=== PATIENT | male | born 2005 | race Caucasian/White ===

== ENCOUNTER 2024-03-15 06:15 | Day surgery (SDC) | payer OTHER ==
[2024-03-09 13:32] VITALS: BMI 23.6
[2024-03-15] MEDS ORDERED: BUPIVACAINE HCL/EPINEPHRINE/PF 30 ML VIAL IJ ONE (07:22)
[2024-03-15] MEDS ORDERED: MIDAZOLAM HCL 2 MG/2 ML SINGLE DOSE VIAL ONE ×2 (07:22→07:42)
[2024-03-15] MEDS ORDERED: FENTANYL CITRATE/PF 50 MCG/ML VIAL ONE ×2 (07:22→08:34)
[2024-03-15] MEDS ORDERED: BUPIVACAINE HCL/PF 0.25% (2.5MG/ML) 10 ML VIAL ONE (07:22)
[2024-03-15] MEDS ORDERED: PROPOFOL 60 ML ONE (07:39)
[2024-03-15] MEDS ORDERED: CEFAZOLIN SODIUM 2 GM in DEXTROSE 5%-WATER 100 ML IVPB ONE (07:44)
[2024-03-15] MEDS ORDERED: SUCCINYLCHOLINE CHLORIDE 200 MG/10 ML SYRINGE ONE (07:47)
[2024-03-15] MEDS: BUPIVACAINE 0.25% /EPI 1:200,000 10 ML VIAL NR ONE (08:02)
[2024-03-15] MEDS ORDERED: PROPOFOL 40 ML ONE (08:05)
[2024-03-15] MEDS ORDERED: ONDANSETRON 4 MG/2 ML VIAL IVPUSH PRN (08:36)
[2024-03-15] MEDS ORDERED: oxyCODONE HCL 5 MG TABLET PO PRN ×2 (08:36)
[2024-03-15] MEDS: ACETAMINOPHEN 1000 MG/100 ML BAG IVPB ONE (08:40)
[2024-03-15] MEDS ORDERED: LACTATED RINGERS SOLUTION 1,000 ML IV SCH (08:45)
[2024-03-15] MEDS ORDERED: oxyCODONE HCL 5 MG TABLET ONE (09:33)
[2024-03-15] MEDS: oxyCODONE HCL 5 MG TABLET PO ONE (09:35)
[2024-03-15 09:46] VITALS: RESP 16; TEMP 97.8
[2024-03-15 10:05] VITALS: BP 130/74; PULSE 68
== END 2024-03-15 10:30 | disposition home or self-care (01) ==
LOC: FASU 06:15
PROVIDERS: ATTEND Orthopaedic Surgery
PROC: 0SQC4ZZ Repair Right Knee Joint, Percutaneous Endoscopic Approach (ICD-10-PCS; principal; 2024-03-15 08:02)
DX: S83.251A Bucket-handle tear of lateral meniscus, current injury, right knee, initial encounter (principal); X58.XXXA Exposure to other specified factors, initial encounter; Y93.9 Activity, unspecified; Y92.9 Unspecified place or not applicable
CPT/HCPCS: 94760; C1713; J0131